=== PATIENT | male | born 1960 | race African-American/Black ===

== ENCOUNTER 2022-09-13 15:47 | Inpatient (IN) | payer OTHER, MEDICAID ==
[~2022-09-13] VITALS: Ht 180.3 cm; Wt 71.7 kg
[2022-09-13] MEDS ORDERED: AZITHROMYCIN 500MG/250ML 250 ML IV ONE (17:00)
[2022-09-13] MEDS ORDERED: CEFTRIAXONE 1GM PREMIX 50 ML IV ONE (17:00)
[2022-09-13] MEDS ORDERED: SODIUM CHLORIDE 0.9% 1,000 ML IV ONE ×2 (17:00→17:45)
[2022-09-13 17:16] LABS: HEMATOCRIT. 43.8 % (42.0-52.0); HEMOGLOBIN. 14.4 g/dL (14.0-18.0); MEAN CORPUSCULAR HEMOGLOBIN 34.7 pg (28.0-32.0); MEAN CORPUSCULAR VOLUME 105.8 fL (80.0-94.0); MEAN PLATELET VOLUME 8.5 fl (7.4-10.4); PLATELET 222 x1000/uL (130-400); RED BLOOD CELL COUNT 4.14 mill/uL (4.7-6.1); RED CELL DISTRIBUTION WIDTH 15.5 % (11.6-14.6)
[2022-09-13 17:25] LABS: INR 1.5; PROTHROMBIN TIME 15.6 sec (9.6-11.0)
[2022-09-13 17:27] LABS: CHLORIDE 106 mEq/L (98-107)
[2022-09-13] MEDS ORDERED: DILTIAZEM HCL 5MG/ML 5ML VIAL IV NR (17:30)
[2022-09-13] MEDS ORDERED: DILTIAZEM HCL 60MG TABLET PO ONE (17:30)
[2022-09-13] MEDS ORDERED: DILTIAZEM HCL 30MG TABLET PO NR (17:30)
[2022-09-13] MEDS ORDERED: DILTIAZEM HCL 5MG/ML 25ML VIAL IV NR (17:30)
[2022-09-13 17:44] LABS: ETHANOL BLOOD < 10 mg/dL
[2022-09-13] MEDS ORDERED: POTASSIUM CHLORIDE 20MEQ TABLET SR PO ONE (18:00)
[2022-09-13] MEDS ORDERED: LORAZEPAM 2MG/ML CPJ IV ONE (19:00)
[2022-09-13] MEDS ORDERED: DILTIAZEM HCL 5MG/ML 5ML VIAL IV SCH (19:15)
[2022-09-13 19:19] LABS: PLATELET ESTIMATE NORMAL
[2022-09-13] MEDS ORDERED: POTASSIUM CHLORIDE 20MEQ TABLET SR PO NR (20:00)
[2022-09-14 08:00] VITALS: BP 110/84
[2022-09-14] MEDS ORDERED: ACETAMINOPHEN 325MG TABLET PO PRN ×2 (09:00)
[2022-09-14] MEDS ORDERED: PANTOPRAZOLE 40MG DR TABLET PO SCH (09:00)
[2022-09-14] MEDS ORDERED: HYDROCODONE/ACETAMINOPHEN 5/325MG TABLET PO PRN (09:00)
[2022-09-14] MEDS ORDERED: CLONIDINE 0.1MG TABLET PO PRN (09:00)
[2022-09-14] MEDS ORDERED: ONDANSETRON HCL 4MG/2ML INJ IV PRN (09:00)
[2022-09-14] MEDS ORDERED: NALOXONE HCL 0.4MG/ML VIAL IV PRN (09:00)
[2022-09-14] MEDS ORDERED: MAGNESIUM/ALUMINUM HYDROXIDE/SIMETHICONE 30ML UDC PO PRN (09:00)
[2022-09-14] MEDS ORDERED: GUAIFENESIN 200MG/10ML SUGAR FREE UDC PO PRN (09:00)
[2022-09-14] MEDS ORDERED: IPRATROPIUM/ALBUTEROL 0.5-3(2.5)MG/3ML NEB HHN PRN (09:00)
[2022-09-14] MEDS ORDERED: ASPIRIN 81MG EC TABLET PO SCH (09:00)
[2022-09-14] MEDS: ENOXAPARIN 40MG/0.4ML SYR SUBCUT SCH (09:11)
[2022-09-14] MEDS ORDERED: LORAZEPAM 2MG/ML CPJ IV PRN (10:15)
[2022-09-14] MEDS: THIAMINE HCL 100MG TABLET PO SCH (10:51)
[2022-09-14] MEDS: FUROSEMIDE 40MG/4ML VIAL IVP SCH (10:53)
[2022-09-14] MEDS: SPIRONOLACTONE 25MG TABLET PO SCH (10:53)
[2022-09-14] MEDS ORDERED: POTASSIUM CHLORIDE 20MEQ TABLET SR PO NR (11:00)
[2022-09-14 11:25] LABS: HEMATOCRIT. 41.3 % (42.0-52.0); HEMOGLOBIN. 13.9 g/dL (14.0-18.0); MEAN CORPUSCULAR HEMOGLOBIN 35.2 pg (28.0-32.0); MEAN CORPUSCULAR VOLUME 104.8 fL (80.0-94.0); MEAN PLATELET VOLUME 9.5 fl (7.4-10.4); PLATELET 198 x1000/uL (130-400); RED BLOOD CELL COUNT 3.94 mill/uL (4.7-6.1); RED CELL DISTRIBUTION WIDTH 15.3 % (11.6-14.6)
[2022-09-14 11:51] LABS: CHLORIDE 107 mEq/L (98-107)
[2022-09-14 12:00] VITALS: BP 123/93
[2022-09-14] MEDS ORDERED: METOPROLOL TARTRATE 5MG/5ML VIAL IV PRN (12:00)
[2022-09-14 12:10] LABS: HDL CHOLESTEROL 33 mg/dL (40-59); LDL CHOLESTEROL 50 mg/dL (5-100); PHOSPHORUS 3.4 mg/dL (2.5-4.9); T4 FREE 1.37 ng/dL (0.76-1.46)
[2022-09-14] MEDS: METOPROLOL TARTRATE 50MG TABLET PO SCH ×2 (12:17→21:00)
[2022-09-14] MEDS ORDERED: DIGOXIN 500MCG/2ML AMP IV NR (12:30)
[2022-09-14] MEDS ORDERED: MAGNESIUM 2 G PREMIX 50 ML IV NR (13:00)
[2022-09-14] MEDS ORDERED: DILTIAZEM HCL 60MG TABLET PO SCH (14:00)
[2022-09-14 16:00] VITALS: BP 126/93
[2022-09-14 16:27] LABS: FOLIC ACID (FOLATE) SERUM 16.4 ng/mL (>5.38)
[2022-09-14] MEDS: DIGOXIN 500MCG/2ML AMP IV SCH (18:07)
[2022-09-14 19:48] LABS: TOTAL IRON BINDING CAPACITY 180 ug/dL (250-450)
[2022-09-14 20:00] VITALS: BP 108/82
[2022-09-14 20:09] LABS: FERRITIN 222 ng/mL (22-322)
[2022-09-14 21:26] LABS: VITAMIN B12 SERUM 1545 pg/mL (211-911)
[2022-09-14 21:31] LABS: PLATELET ESTIMATE NORMAL
[2022-09-15] VITALS: BP 101/69
[2022-09-15 04:00] VITALS: BP 114/92
[2022-09-15 06:58] LABS: HEMOGLOBIN. 13.4 g/dL (14.0-18.0); MEAN CORPUSCULAR VOLUME 106.5 fL (80.0-94.0); MEAN PLATELET VOLUME 9.1 fl (7.4-10.4); PLATELET 194 x1000/uL (130-400); RED BLOOD CELL COUNT 3.84 mill/uL (4.7-6.1)
[2022-09-15 08:00] VITALS: BP 110/94
[2022-09-15 09:06] LABS: CHLORIDE 111 mEq/L (98-107)
[2022-09-15] MEDS: THIAMINE HCL 100MG TABLET PO SCH (09:58)
[2022-09-15] MEDS: METOPROLOL TARTRATE 50MG TABLET PO SCH ×2 (09:58→21:00)
[2022-09-15] MEDS: FUROSEMIDE 40MG/4ML VIAL IVP SCH (09:59)
[2022-09-15] MEDS: PANTOPRAZOLE SODIUM 40 MG/VIAL IV SCH (09:59)
[2022-09-15] MEDS: ENOXAPARIN 40MG/0.4ML SYR SUBCUT SCH (09:59)
[2022-09-15] MEDS: SPIRONOLACTONE 25MG TABLET PO SCH (09:59)
[2022-09-15] MEDS ORDERED: IOHEXOL-300 100 ML BOTTLE ONE (09:59)
[2022-09-15 12:00] VITALS: BP 96/73
[2022-09-15 14:25] LABS: PLATELET ESTIMATE NORMAL
[2022-09-15] MEDS ORDERED: PHYTONADIONE 10MG/ML AMP SUBCUT NR (15:30)
[2022-09-15 16:00] VITALS: BP_SYST 87; BP_SYST 94; BP_DIAS 58; BP_DIAS 59
[2022-09-15] MEDS: DIGOXIN 500MCG/2ML AMP IV SCH (17:23)
[2022-09-15 20:00] VITALS: BP 92/74
[2022-09-16] VITALS: BP 114/90
[2022-09-16] MEDS: ALBUMIN HUMAN 25GM/100ML (25%) IV SCH ×2 (00:11→06:05)
[2022-09-16 04:00] VITALS: BP 100/81
[2022-09-16 06:05] LABS: BASOPHILS % 3.6 % (0.0-2.0); EOSINOPHILS % 4.3 % (0.0-5.0); HEMATOCRIT. 39.2 % (42.0-52.0); HEMOGLOBIN. 13.1 g/dL (14.0-18.0); MEAN CORPUSCULAR HEMOGLOBIN 35.3 pg (28.0-32.0); MEAN CORPUSCULAR VOLUME 105.3 fL (80.0-94.0); MEAN PLATELET VOLUME 9.2 fl (7.4-10.4); MONOCYTES % 13.1 % (2.0-8.0); PLATELET 192 x1000/uL (130-400); RED BLOOD CELL COUNT 3.72 mill/uL (4.7-6.1); RED CELL DISTRIBUTION WIDTH 15.5 % (11.6-14.6)
[2022-09-16 06:11] LABS: CHLORIDE 108 mEq/L (98-107)
[2022-09-16 06:13] LABS: INR 1.4; PROTHROMBIN TIME 14.6 sec (9.6-11.0)
[2022-09-16 06:36] LABS: DIGOXIN 0.6 ng/mL (0.9-2.0)
[2022-09-16 08:00] VITALS: BP 124/79
[2022-09-16] MEDS: THIAMINE HCL 100MG TABLET PO SCH (08:55)
[2022-09-16] MEDS: METOPROLOL TARTRATE 50MG TABLET PO SCH ×2 (08:55→21:30)
[2022-09-16] MEDS: SPIRONOLACTONE 25MG TABLET PO SCH (08:55)
[2022-09-16] MEDS: PANTOPRAZOLE SODIUM 40 MG/VIAL IV SCH (08:56)
[2022-09-16] MEDS: FUROSEMIDE 40MG/4ML VIAL IVP SCH (08:56)
[2022-09-16] MEDS ORDERED: POTASSIUM CHLORIDE 20MEQ TABLET SR PO SCH (09:00)
[2022-09-16] MEDS ORDERED: MAGNESIUM 2 G PREMIX 50 ML IV SCH (10:00)
[2022-09-16] MEDS ORDERED: SODIUM BICARBONATE 4% (2.4MEQ) 5ML VIAL IV ONE (10:31)
[2022-09-16] MEDS ORDERED: LIDOCAINE HCL 1% 10 MG/ML 10ML VIAL ONE (10:32)
[2022-09-16 12:00] VITALS: BP 99/75
[2022-09-16 16:00] VITALS: BP 114/75
[2022-09-16] MEDS: DIGOXIN 500MCG/2ML AMP IV SCH (17:39)
[2022-09-16 20:00] VITALS: BP 104/68
[2022-09-17] VITALS: BP 97/67
[2022-09-17 04:00] VITALS: BP 116/72
[2022-09-17 06:44] LABS: BASOPHILS % 2.5 % (0.0-2.0); EOSINOPHILS % 5.4 % (0.0-5.0); HEMATOCRIT. 40.1 % (42.0-52.0); HEMOGLOBIN. 13.3 g/dL (14.0-18.0); LYMPHOCYTES % 30.2 % (20.0-50.0); MEAN CORPUSCULAR VOLUME 105.2 fL (80.0-94.0); MEAN PLATELET VOLUME 9.1 fl (7.4-10.4); MONOCYTES % 12.4 % (2.0-8.0); NEUTROPHILS % 49.5 % (40.0-76.0); PLATELET 212 x1000/uL (130-400); RED BLOOD CELL COUNT 3.81 mill/uL (4.7-6.1); RED CELL DISTRIBUTION WIDTH 15.4 % (11.6-14.6)
[2022-09-17 07:33] LABS: CHLORIDE 107 mEq/L (98-107)
[2022-09-17 07:40] LABS: PHOSPHORUS 2.1 mg/dL (2.5-4.9)
[2022-09-17 08:00] VITALS: BP 124/99
[2022-09-17] MEDS: PANTOPRAZOLE SODIUM 40 MG/VIAL IV SCH (08:53)
[2022-09-17] MEDS: METOPROLOL TARTRATE 50MG TABLET PO SCH (08:54)
[2022-09-17] MEDS: FUROSEMIDE 40MG/4ML VIAL IVP SCH (08:54)
[2022-09-17] MEDS: THIAMINE HCL 100MG TABLET PO SCH (08:55)
[2022-09-17] MEDS: SPIRONOLACTONE 25MG TABLET PO SCH (08:55)
[2022-09-17] MEDS ORDERED: MAGNESIUM 1 G PREMIX 100 ML IV NR (09:30)
[2022-09-17] MEDS ORDERED: METOPROLOL TARTRATE 5MG/5ML VIAL IV NR (09:45)
[2022-09-17] MEDS ORDERED: POTASSIUM PHOS,M-BASIC-D-BASIC 15 MMOL in DEXT 5% WATER 245 ML IV NR (10:00)
[2022-09-17 11:59] VITALS: BP 124/99
[2022-09-17 12:00] VITALS: BP 100/64
[2022-09-17] MEDS ORDERED: METOPROLOL TARTRATE 50MG TABLET PO SCH (21:00)
== END 2022-09-17 13:58 | disposition home or self-care (01) | DRG 432 ==
LOC: ER 15:47 → CANBEDREQ 21:25 → 7EST 21:28 → ENRESERV 23:20
PROVIDERS: ADMIT Internal Medicine; ATTEND Internal Medicine
PROC: 0W9G3ZZ Drainage of Peritoneal Cavity, Percutaneous Approach (ICD-10-PCS; principal; 2022-09-16)
DX: K70.31 Alcoholic cirrhosis of liver with ascites (principal); I50.21 Acute systolic (congestive) heart failure; J96.00 Acute respiratory failure, unspecified whether with hypoxia or hypercapnia; D68.9 Coagulation defect, unspecified; E87.20 Acidosis, unspecified; K86.1 Other chronic pancreatitis; I42.0 Dilated cardiomyopathy; I11.0 Hypertensive heart disease with heart failure; I48.91 Unspecified atrial fibrillation; I49.3 Ventricular premature depolarization; Z20.822 Contact with and (suspected) exposure to COVID-19; E88.09 Other disorders of plasma-protein metabolism, not elsewhere classified; E11.9 Type 2 diabetes mellitus without complications; E86.0 Dehydration; E03.9 Hypothyroidism, unspecified; E87.6 Hypokalemia; D53.9 Nutritional anemia, unspecified; E83.42 Hypomagnesemia; K57.30 Diverticulosis of large intestine without perforation or abscess without bleeding; D75.89 Other specified diseases of blood and blood-forming organs; E83.39 Other disorders of phosphorus metabolism; G89.29 Other chronic pain; I07.1 Rheumatic tricuspid insufficiency; I27.20 Pulmonary hypertension, unspecified; K43.9 Ventral hernia without obstruction or gangrene; K76.0 Fatty (change of) liver, not elsewhere classified; N40.0 Benign prostatic hyperplasia without lower urinary tract symptoms; Z63.4 Disappearance and death of family member; Z79.82 Long term (current) use of aspirin; Z79.899 Other long term (current) drug therapy
CPT/HCPCS: 36415; 49083; 71045; 74178; 76700; 80048; 80053; 80061; 80076; 80162; 80307; 80320; 80329; 82040; 82105; 82140; 82378; 82607; 82728; 82746; 83036; 83540; 83550; 83605; 83615; 83735; 83880; 84100; 84145; 84439; 84443; 84484; 85025; 85044; 85379; 86301; 86850; 86900; 87426; 87804; 88108; 93005; 93306; 93970; 99291; C9113; C9803; J0456; J0696; J1160; J1650; J1940; J2060; J3430; J3475; J3490; J7030; J7060; P9047; Q9967; G0480